=== PATIENT | male | born 1965 | race African-American/Black ===

== ENCOUNTER → 2021-03-10 | Outpatient (CLI) | payer BC ==
[2021-03-10 16:19] LABS: HEMATOCRIT 44.7 % (42.0-52.0); HEMOGLOBIN 15.2 g/dL (14.0-18.0); MEAN CORPUSCULAR HEMOGLOBIN 31.2 pg (28.0-32.0); MEAN CORPUSCULAR VOLUME 91.8 fL (80.0-94.0); MEAN PLATELET VOLUME 7.3 fl (7.4-10.4); PLATELET 270 x1000/uL (130-400); RED BLOOD CELL COUNT 4.88 mill/uL (4.7-6.1); RED CELL DISTRIBUTION WIDTH 14.2 % (11.6-14.6)
[2021-03-10 16:20] LABS: CLARITY URINE CLEAR (CLEAR); COLOR URINE YELLOW (YELLOW); KETONES URINE TRACE (NEGATIVE); LEUKOCYTE ESTERASE URINE NEGATIVE (NEGATIVE); NITRITE URINE NEGATIVE (NEGATIVE); OCCULT BLOOD URINE 2+ (NEGATIVE); PROTEIN URINE NEGATIVE (NEGATIVE); SPECIFIC GRAVITY URINE 1.022 (1.005-1.030)
[2021-03-10 16:31] LABS: CHLORIDE 112 mEq/L (98-107)
[2021-03-10 16:38] LABS: LDL CHOLESTEROL 91 mg/dL (5-100)
[2021-03-10 16:39] LABS: HDL CHOLESTEROL 53 mg/dL (40-59)
[2021-03-10 19:17] LABS: PLATELET ESTIMATE NORMAL
[2021-03-12 09:08] LABS: % FREE PSA 14.4 % (.); HEPATITIS C AB <0.1 s/co ratio (0.0-0.9); PROSTATE SPECIFIC AG TOTAL 0.9 ng/mL (0.0-4.0); PSA FREE 0.13 ng/mL
== END | disposition home or self-care (01) ==
LOC: LAB 15:31
PROVIDERS: ATTEND Internal Medicine Nephrology
DX: Z00.00 Encounter for general adult medical examination without abnormal findings (principal)
CPT/HCPCS: 36415; 80053; 80061; 81003; 83036; 84153; 84154; 85014; 85018; 86803

== ENCOUNTER 2023-07-04 15:01 | Emergency (ER) | payer BC ==
[~2023-07-04] VITALS: Ht 172.7 cm; Wt 81.0 kg
[2023-07-04 15:04] VITALS: O2SAT 95
[2023-07-04 15:24] LABS: BASOPHILS % 0.7 % (0.0-2.0); EOSINOPHILS % 5.6 % (0.0-5.0); HEMATOCRIT. 46.2 % (42.0-52.0); HEMOGLOBIN. 15.5 g/dL (14.0-18.0); LYMPHOCYTES % 41.3 % (20.0-50.0); MEAN CORPUSCULAR HEMOGLOBIN 30.8 pg (28.0-32.0); MEAN CORPUSCULAR HGB CONC 33.6 g/dL (31.0-37.0); MEAN CORPUSCULAR VOLUME 91.7 fL (80.0-94.0); MEAN PLATELET VOLUME 7.4 fl (7.4-10.4); NEUTROPHILS % 43.4 % (40.0-76.0); PLATELET 250 x1000/uL (130-400); RED BLOOD CELL COUNT 5.04 mill/uL (4.7-6.1); RED CELL DISTRIBUTION WIDTH 14.7 % (11.6-14.6); WHITE BLOOD COUNT 5.2 x1000/uL (4.5-11.0)
[2023-07-04 15:32] LABS: INR 1.1; PROTHROMBIN TIME 11.9 sec (9.6-11.0)
[2023-07-04 15:40] LABS: ALANINE AMINOTRANSFERASE 17 IU/L (10-49); ALBUMIN 4.1 g/dL (3.2-4.8); ASPARTATE AMINOTRANSFERASE 21 IU/L (<34); CALCIUM 9.4 mg/dL (8.7-10.4); CARBON DIOXIDE 33 mEq/L (21-32); CHLORIDE 106 mEq/L (98-107); CREATININE 1.1 mg/dL (0.6-1.3); GLUCOSE 96 mg/dL (70-105); POTASSIUM 3.4 mEq/L (3.5-5.1); PROTEIN TOTAL 7.2 g/dL (6.0-8.3); SODIUM 144 mEq/L (136-145); TROPONIN I HIGH SENSITIVITY 12 ng/L (3.0-53); UREA NITROGEN BLOOD 10 mg/dL (9-23)
[2023-07-04] MEDS ORDERED: PREDNISONE 20MG TABLET PO STA (15:53)
[2023-07-04] MEDS ORDERED: ALBU05 IH (16:03)
[2023-07-04] MEDS ORDERED: P20 MT (16:04)
[2023-07-04 17:33] LABS: TROPONIN I HIGH SENSITIVITY 11 ng/L (3.0-53)
[2023-07-04 18:13] VITALS: BP 112/52; PULSE 88; RESP 18; TEMP 98.5
== END 2023-07-04 18:14 | disposition home or self-care (01) ==
LOC: ER 15:01
DX: J40 Bronchitis, not specified as acute or chronic (principal); Z20.822 Contact with and (suspected) exposure to COVID-19
CPT/HCPCS: 99285; 71045; 87426; 80053; 83880; 85025; 85610; 84484; 87804 ×2; 36415; 93005; J7512; C9803